=== PATIENT | male | born 1980 | race Hispanic/Latino ===

== ENCOUNTER 2021-07-31 17:10 | Emergency (ER) | payer BC ==
[2021-07-31] MEDS ORDERED: predniSONE 20 MG TAB ONE (20:19)
[2021-07-31] MEDS ORDERED: VALACYCLOVIR 500 MG TAB ONE (20:21)
--- NOTE | 2021-07-31 20:31 | EDPHYS ---
Physician Documentation [facility] Name: Pro Franz Age: 40 yrs Sex: Male : 1980 Arrival Date: 07/31/2021 Time: 17:10 Bed 10 Private MD: Randy Grimaldo HPI: 07/31 20:23 This 40 yrs old Male presents to ER via Ambulatory with complaints of Numbness gregor Of Face - right side. 20:23 The patient's problem is reported as a facial droop, on right. Onset: The gregor symptoms/episode began/occurred 1 day(s) ago. Duration: The episode is continuous. Context: the episode(s) was witnessed, by family, symptoms became apparent on July 30, 2021. The symptoms are alleviated by nothing. The symptoms are aggravated by nothing. Associated signs and symptoms: The patient has no apparent associated signs or symptoms. Severity of symptoms: At their worst the symptoms were mild in the emergency department the symptoms are unchanged. Patient's baseline: Neuro: alert and fully oriented. The patient has not experienced similar symptoms in the past. Historical: - Allergies: 17:31 No Known Allergies; vg1 - Home Meds: 17:31 None [Active]; vg1 - PMHx: 17:31 None; vg1 - PSHx: 17:31 None; vg1 - Immunization history:: Client reports receiving the 2nd dose of the Covid vaccine. - Social history:: Smoking status: Patient denies any tobacco usage or history of. - Family history:: not pertinent. ROS: 20:23 Constitutional: Negative for fever, chills, and weight loss, Eyes: Negative for injury, gregor pain, redness, and discharge, ENT: Negative for injury, pain, and discharge, Neck: Negative for injury, pain, and swelling, Cardiovascular: Negative for chest pain, palpitations, and edema, Respiratory: Negative for shortness of breath, cough, wheezing, and pleuritic chest pain, Abdomen/GI: Negative for abdominal pain, nausea, vomiting, diarrhea, and constipation, Back: Negative for injury and pain, : Negative for injury, bleeding, discharge, and swelling, MS/Extremity: Negative for injury and deformity, Skin: Negative for injury, rash, and discoloration, Psych: Negative for depression, anxiety, suicide ideation, homicidal ideation, and hallucinations, Allergy/Immunology: Negative for hives, rash, and allergies, Endocrine: Negative for neck swelling, polydipsia, polyuria, polyphagia, and marked weight changes, Hematologic/Lymphatic: Negative for swollen nodes, abnormal bleeding, and unusual bruising. 20:23 Neuro: Positive for weakness, of the forehead, right eye, right cheek, right ear, chin and right jaw. Exam: 20:23 Constitutional: This is a well developed, well nourished patient who is awake, alert, gregor and in no acute distress. Eyes: Pupils equal round and reactive to light, extra-ocular motions intact. Lids and lashes normal. Conjunctiva and sclera are non-icteric and not injected. Cornea within normal limits. Periorbital areas with no swelling, redness, or edema. ENT: Nares patent. No nasal discharge, no septal abnormalities noted. Tympanic membranes are normal and external auditory canals are clear. Oropharynx with no redness, swelling, or masses, exudates, or evidence of obstruction, uvula midline. Mucous membranes moist. Neck: Trachea midline, no thyromegaly or masses palpated, and no cervical lymphadenopathy. Supple, full range of motion without nuchal rigidity, or vertebral point tenderness. No Meningismus. Chest/axilla: Normal chest wall appearance and motion. Nontender with no deformity. No lesions are appreciated. Cardiovascular: Regular rate and rhythm with a normal S1 and S2. No gallops, murmurs, or rubs. Normal PMI, no JVD. No pulse deficits. Respiratory: Lungs have equal breath sounds bilaterally, clear to auscultation and percussion. No rales, rhonchi or wheezes noted. No increased work of breathing, no retractions or nasal flaring. Abdomen/GI: Soft, non-tender, with normal bowel sounds. No distension or tympany. No guarding or rebound. No evidence of tenderness throughout. Back: No spinal tenderness. No costovertebral tenderness. Full range of motion. Male : Normal genitalia with no discharge or lesions. Skin: Warm, dry with normal turgor. Normal color with no rashes, no lesions, and no evidence of cellulitis. MS/ Extremity: Pulses equal, no cyanosis. Neurovascular intact. Full, normal range of motion. Psych: Awake, alert, with orientation to person, place and time. Behavior, mood, and affect are within normal limits. 20:23 Head/face: Noted is RIGHT FACIAL WEAKNESS. 20:23 Neuro: Orientation: is normal, appropriate for stated age, no acute changes, Mentation: is normal, appropriate for stated age, no acute changes, Memory: is normal, appropriate for stated age, no acute changes, Cranial nerves: facial droop noted on right, with forehead involved. Cerebellar function: is grossly normal, is grossly normal based on the patient's age, no acute changes, Motor: no acute changes, moves all fours, strength is normal, Sensation: is normal, no obvious gross deficits, appropriate no acute changes, Gait: is steady, appropriate for age, Deep tendon reflexes are 2+ (normal) in the bilateral brachioradialis, bicep, tricep and patellar and Achilles tendons, Babinski testing is normal, seizure activity, is not displayed by the patient. 20:27 CT study not indicated or reported. Reason for not performing CT: NA gregor Vital Signs: 17:28 BP 143 / 96; Pulse 70; Resp 16; Temp 98.2; Pulse Ox 99% ; Weight 79.38 kg; Height 5 ft. vg1 4 in. (162.56 cm); Pain 4/10; 20:01 BP 150 / 93; Pulse 78; Resp 16; Pulse Ox 99% ; vg1 17:28 Body Mass Index 30.04 (79.38 kg, 162.56 cm) vg1 NIH Stroke Scale Scores: 20:27 NIHSS Score: 1 gregor MDM: 19:38 Patient medically screened. gregor 20:27 Differential diagnosis: CVA, TIA, paralysis. Data reviewed: vital signs, nurses notes. 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 Test interpretation: by ED physician or midlevel provider:. Counseling: I had a detailed discussion with the patient and/or guardian regarding: the historical points, exam findings, and any diagnostic results supporting the discharge/admit diagnosis, lab results, radiology results. Administered Medications: 20:39 Drug: valACYclovir 1000 mg Route: PO; vg1 20:39 Follow up: Response: Medication administered at discharge. vg1 20:39 Drug: predniSONE 60 mg Route: PO; vg1 20:39 Follow up: Response: Medication administered at discharge. vg1 Disposition Summary: 07/31/21 20:30 Discharge Ordered Location: Home gregor Problem: new gregor Symptoms: have improved gregor Condition: Stable gregor Diagnosis - Johnson's palsy gregor Followup: gregor - With: Private Physician - When: 2 - 3 days - Reason: Recheck today's complaints, Continuance of care, Re-evaluation by your physician Followup: gregro - With: Juan Daniel Villarreal MD - When: 2 - 3 days - Reason: Recheck today's complaints, Re-evaluation by your physician Discharge Instructions: - Discharge Summary Sheet gregor - Johnson Palsy, Adult gregor Forms: - Medication Reconciliation Form gregor - Thank You Letter gregor - Antibiotic Education gregor - Prescription Opioid Use [facility] Prescriptions: - Artificial Tears (PF) - instill 1 application by OPHTHALMIC route 8 times per day; 10 milliliter; gregor Refills: 0, Product Selection Permitted - Valtrex 1 gram Oral tablet - take 1 tablet by ORAL route 3 times per day; 21 tablet; Refills: 0, Product gregor Selection Permitted - Prednisone 20 mg Oral Tablet - take 3 tablets by ORAL route once daily for 5 days; 15 tablet; Refills: 0, gregor Product Selection Permitted NIH Stroke Scale - NIH Stroke Score Date: 07/31/2021 Time: 20:27 Total Score = 1 1a. Level of Consciousness (LOC) - 0(Alert) 1b. Level of Consciousness (LOC) (Month \T\ Age) - 0(Both) 1c. LOC Commands (Open \T\ Closes Eyes/Cardiovascular Specialist) - 0(Both) 2. Best Gaze (Lateral Gaze Paresis) - 0(Normal) 3. Visual Field Loss - 0(No visual loss) 4. Facial Palsy - 1(Minor Paralysis) 5a. Left Arm: Motor (10-second hold) - 0(No drift) 5b. Right Arm: Motor (10-second hold) - 0(No drift) 6a. Left Leg: Motor (5-second hold - always test supine) - 0(No drift) 6b. Right Leg: Motor (5-second hold - always test supine) - 0(No drift) 7. Limb Ataxia (finger/nose \T\ heel/leon - test with eyes open) - 0(Absent) 8. Sensory Loss (pinprick arms/legs/face) - 0(Normal) 9. Best Language: Aphasia (description/naming/reading) - 0(No aphasia) 10. Dysarthria (speech clarity - read or repeat words) - 0(Normal) 11. Extinction and Inattention (visual/tactile/auditory/spatial/personal) - 0(No abnormality) Initials: gregor Signatures: Randy Spencer, Alexus Banegas MD, cha, RN RN vg1
--- NOTE | 2021-07-31 20:31 | ER ---
Nurse's Notes [facility] Name: Pro Franz Age: 40 yrs Sex: Male : 1980 Arrival Date: 07/31/2021 Time: 17:10 Bed 10 Private MD: Diagnosis: Johnson's palsy Presentation: 07/31 17:28 Chief complaint: Patient states: Right eye pressure began yesterday and states today vg1 Right facial that began approximately an hour in a half ago. Denies headache today. It appears that Right eye does not close fully and pt states 'when i drink something a little bit of it comes out of my mouth; it feels like theres a hole in my mouth'. Coronavirus screen: Vaccine status: Patient reports receiving the 2nd dose of the covid vaccine. Client denies travel out of the [place] in the last 14 days. Ebola Screen: Patient negative for fever greater than or equal to 101.5 degrees Fahrenheit, and additional compatible Ebola Virus Disease symptoms. Initial Sepsis Screen: Does the patient meet any 2 criteria? No. Patient's initial sepsis screen is negative. Does the patient have a suspected source of infection? No. Patient's initial sepsis screen is negative. Risk Assessment: Do you want to hurt yourself or someone else? Patient reports no desire to harm self or others. Onset of symptoms was July 31, 2021 at 16:00. 17:28 Method Of Arrival: Ambulatory vg1 17:28 Acuity: JOSÉ MIGUEL 3 vg1 Triage Assessment: 17:31 General: Appears in no apparent distress. uncomfortable, Behavior is calm, cooperative. vg1 Pain: Complains of pain in right eye. Neuro: Level of Consciousness is awake, alert, obeys commands, Oriented to person, place, time, situation, [employer] are equal bilaterally Moves all extremities. Gait is steady, Speech is normal, Facial symmetry appears normal. Historical: - Allergies: 17:31 No Known Allergies; vg1 - Home Meds: 17:31 None [Active]; vg1 - PMHx: 17:31 None; vg1 - PSHx: 17:31 None; vg1 - Immunization history:: Client reports receiving the 2nd dose of the Covid vaccine. - Social history:: Smoking status: Patient denies any tobacco usage or history of. - Family history:: not pertinent. Screenin:05 Abuse screen: Denies threats or abuse. Nutritional screening: No deficits noted. vg1 Tuberculosis screening: No symptoms or risk factors identified. Fall Risk None identified. Assessment: 20:02 General: Appears in no apparent distress. comfortable, Behavior is calm, cooperative. vg1 Pain: Denies pain. Neuro: Level of Consciousness is awake, alert, obeys commands, Oriented to person, place, time, situation, [employer] are equal bilaterally Moves all extremities. Gait is steady, Speech is normal, Facial symmetry appears normal, Reports numbness in right side of face states is unable to close right eye fully and when taking a drink part of the fluid spills out of mouth. Cardiovascular: Patient's skin is warm and dry. Respiratory: Airway is patent Respiratory effort is even, unlabored. Respiratory:. GI: No deficits noted. : No deficits noted. EENT: No deficits noted. Derm: Skin is intact, is healthy with good turgor. Musculoskeletal: Circulation, motion, and sensation intact. Vital Signs: 17:28 BP 143 / 96; Pulse 70; Resp 16; Temp 98.2; Pulse Ox 99% ; Weight 79.38 kg; Height 5 ft. vg1 4 in. (162.56 cm); Pain 4/10; 20:01 BP 150 / 93; Pulse 78; Resp 16; Pulse Ox 99% ; vg1 17:28 Body Mass Index 30.04 (79.38 kg, 162.56 cm) vg1 NIH Stroke Scale Scores: 20:27 NIHSS Score: 1 gregor ED Course: 17:10 Patient arrived in ED. am2 17:31 Triage completed. vg1 17:31 Arm band placed on. vg1 19:18 Alexus Campbell, DC is Primary Nurse. vg1 19:38 Randy Spencer MD is Attending Physician. gregor 20:05 Patient has correct armband on for positive identification. Bed in low position. Call vg1 light in reach. 20:05 No provider procedures requiring assistance completed. vg1 20:28 Juan Daniel Villarreal MD is Referral Physician. gregor 20:39 Patient did not have IV access during this emergency room visit. vg1 Administered Medications: 20:39 Drug: valACYclovir 1000 mg Route: PO; vg1 20:39 Follow up: Response: Medication administered at discharge. vg1 20:39 Drug: predniSONE 60 mg Route: PO; vg1 20:39 Follow up: Response: Medication administered at discharge. vg1 Outcome: 20:30 Discharge ordered by . gregor 20:39 Discharged to home ambulatory. vg1 20:39 Condition: stable 20:39 Discharge instructions given to patient, Instructed on discharge instructions, follow up and referral plans. medication usage, Demonstrated understanding of instructions, follow-up care, medications, Prescriptions given X 3. 20:39 Patient left the ED. vg1 NIH Stroke Scale - NIH Stroke Score Date: 07/31/2021 Time: Total Score = 1 1a. Level of Consciousness (LOC) - 0(Alert) 1b. Level of Consciousness (LOC) (Month \T\ Age) - 0(Both) 1c. LOC Commands (Open \T\ Closes Eyes/Doorperson) - 0(Both) 2. Best Gaze (Lateral Gaze Paresis) - 0(Normal) 3. Visual Field Loss - 0(No visual loss) 4. Facial Palsy - 1(Minor Paralysis) 5a. Left Arm: Motor (10-second hold) - 0(No drift) 5b. Right Arm: Motor (10-second hold) - 0(No drift) 6a. Left Leg: Motor (5-second hold - always test supine) - 0(No drift) 6b. Right Leg: Motor (5-second hold - always test supine) - 0(No drift) 7. Limb Ataxia (finger/nose \T\ heel/leon - test with eyes open) - 0(Absent) 8. Sensory Loss (pinprick arms/legs/face) - 0(Normal) 9. Best Language: Aphasia (description/naming/reading) - 0(No aphasia) 10. Dysarthria (speech clarity - read or repeat words) - 0(Normal) 11. Extinction and Inattention (visual/tactile/auditory/spatial/personal) - 0(No abnormality) Initials: [facility] Signatures: Randy Spencer, Lulu Euceda MD, cha, Victoria, RN RN vg1
[2021-07-31 21:06] VITALS: TEMP 98.2; O2SAT 99
[2021-07-31 21:07] VITALS: BP 150/93
== END 2021-07-31 20:39 | disposition home or self-care (01) ==
LOC: ER 17:10
DX: G51.0 Bell's palsy (principal)
CPT/HCPCS: 99283; J7512